=== PATIENT | female | born 1960 | race Caucasian/White ===

== ENCOUNTER 2017-10-24 11:09 | Emergency (ER) | payer SELFPAY ==
[~2017-10-24] VITALS: Ht 162.6 cm; Wt 72.6 kg
[~2017-10-24 11:09] MED LIST: ACEASPCAF; ACYC400 PO; ALBU90OI INH; AMOCLA875 PO; AMOX500 PO; BENZ100A PO; BODY; CEPH500 PO; CIPR500 PO; CYCL10 PO; HYDACE5 PO; HYDGUAL120 PO; IBUP200 PO; IBUP800 PO; INDO25 PO; NAPR500 PO; Norco 5-325 Ta1 EACH PO; ONDA4ODT MM; OXYACE5T PO; PHENA200 PO; PROM25 PO; Patanol5 ML LEFTEYE; Percocet 5-3251 EACH PO; SULTRIDS PO; Veetids 500500 MG PO; [UNRECOGNIZED DRUG - OTHER]
[2017-10-24] MEDS ORDERED: FLUO10 PO (11:23)
[2017-10-24] MEDS ORDERED: Crutch1 EACH MISC (12:20)
[2017-10-24] MEDS ORDERED: Norco 5-325 Ta1 EACH PO (12:20)
== END 2017-10-24 12:46 | disposition home or self-care (01) ==
LOC: ER 11:09
DX: S92.151A Displaced avulsion fracture (chip fracture) of right talus, initial encounter for closed fracture (principal); F17.200 Nicotine dependence, unspecified, uncomplicated; Z88.2 Allergy status to sulfonamides; Z79.899 Other long term (current) drug therapy; W08.XXXA Fall from other furniture, initial encounter
CPT/HCPCS: 29515; 73610; 73630; 99284-25